=== PATIENT | male | born 1945 | race Caucasian/White ===

== ENCOUNTER 2018-04-16 12:11 | Day surgery (SDC) | payer MEDICARE, OTHER ==
[~2018-04-16] VITALS: Ht 185.4 cm; Wt 113.4 kg
[~2018-04-16 12:11] MED LIST: ATORVASTATIN CA40 MG PO; CALCIUM500 MG PO; GLIPIZIDE XL10 MG PO; LISINOPRIL20 MG PO; METFORMIN HCL1000 MG PO; OMEPRAZOLE20 MG PO
[2018-04-16] MEDS ORDERED: NEURONTIN300 MG PO (13:00)
--- NOTE | 2018-04-16 16:38 | NUR ---
04/16/18 1638 Nohemi Krause 1625- PT ARRIVES TO PACU FROM ENDO ROOM ON 2 L NC WITH SATS 100%. RESP EVEN AND UNLABORED. PT REACTIVER TO VERBAL STIMULUS AND DENIES PAIN/NAUSEA. PT ENC TO COUGH AND DEEP BREATHE. PT ENC TO PASS GAS. ETCO2 39. 1628- PT TITRATED TO RA. SATS >90%. RESP EVEN AND UNLABORED. DR. BROWN AT BEDSIDE TO DISCUSS FINDINGS WITH PT. PT'S QUESTIONES ANSWERED. 1635- PT ABLE TO PASS GAS. PT DENIES PAIN/NAUSEA. RESP EVEN AND UNLABORED. RA SATS >90%.
--- NOTE | 2018-04-17 19:21 | OR ---
[facility] [address], [place] [address] Signed DATE OF OPERATION: 04/16/2018 SURGEON: Ly Brown MD PREOPERATIVE DIAGNOSES: 1. 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 2. History of diminutive polyp in 2013 with diverticulosis. POSTOPERATIVE DIAGNOSIS: Sigmoid and left-sided diverticulosis, no evidence of recurrent or persistent polyp. PROCEDURE: Total colonoscopy to cecum. ANESTHESIA: Intravenous sedation, fentanyl 100 mcg, Versed 5 mg. INDICATION: This is a 72-year-old white man, who is a patient of Dr. Tello Sotelo of [place], [place]. He is known to me from the past, having last undergone colonoscopy in 2013, where he was found to have a diminutive polyp and diverticulosis. 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 He is symptom free currently. He is here for surveillance colonoscopy. He understands the risks of bleeding, infection, and perforation, and wished to proceed. FINDINGS: The prep was good. Complete colonoscopy was undertaken of the cecum. There was no sign of recurrent polyp, colon diverticula of the sigmoid and left colon. DESCRIPTION OF PROCEDURE: The patient was brought to the endoscopy suite and placed in lateral decubitus position, given intravenous sedation to the point of slurred speech and nystagmus. Digital rectal examination was normal. An Olympus video colonoscope was passed in the rectum and manipulated throughout the colon ultimately intubating the cecum itself. The ileocecal valve and appendiceal orifice were normal. The scope was withdrawn from that point and examination throughout showed no sign of abnormality. There was one area that appeared to be suggestive of prior Endo Jose tattoo dye in the submucosal area. This was at about 90 cm. Further withdrawal of scope showed numerous diverticula of the left colon and sigmoid. Electronically Signed By: LY BROWN MD 04/17/181920 PATIENT NAME: NELSON RUSSELL OPERATIVE REPORT DATE OF : 47 REPORT #: [id number] PHYSICIAN: LY BROWN MD PCP: TELLO SOTELO MD REPORT IS CONFIDENTIAL AND NOT TO BE RELEASED WITHOUT AUTHORIZATION [facility] [address], [place] [address] Signed Retroflexed view of the rectum was normal. Scope was removed, and the patient was taken to recovery room in good condition. CONCLUDING DIAGNOSIS: Diverticulosis. No polyps. PLAN: Recommend high-fiber diet. Repeat colonoscopy in 10 years if clinically appropriate at advanced age of 82. He will return to the ongoing care of Dr. Tello Sotelo at [place], [place]. MD GRISELDA Bahena/JAMEELL /[id number] cc: Tello Sotelo MD Copies: TELLO SOTELO MD ~ Electronically Signed By: LY BROWN MD 04/17/18 192 PATIENT NAME: NELSON RUSSELL OPERATIVE REPORT DATE OF : 47 REPORT #: [id number] PHYSICIAN: LY BROWN MD PCP: TELLO SOTELO MD REPORT IS CONFIDENTIAL AND NOT TO BE RELEASED WITHOUT AUTHORIZATION
== END 2018-04-16 17:00 | disposition home or self-care (01) ==
LOC: OPS 12:11 → DS 14:00 → OPS 14:00
PROVIDERS: Surgery
PROC: 0DJD8ZZ Inspection of Lower Intestinal Tract, Via Natural or Artificial Opening Endoscopic (ICD-10-PCS; principal; 2018-04-16 14:00)
DX: Z12.11 Encounter for screening for malignant neoplasm of colon (principal); K57.30 Diverticulosis of large intestine without perforation or abscess without bleeding; E11.9 Type 2 diabetes mellitus without complications; I10 Essential (primary) hypertension; Z86.010 Personal history of colon polyps; Z98.890 Other specified postprocedural states; Z85.51 Personal history of malignant neoplasm of bladder
CPT/HCPCS: 99153; G0500; J2250; J3010; J7120